=== PATIENT | male | born 2000 | race Caucasian/White ===

== ENCOUNTER 2022-11-08 16:31 | Emergency (ER) | payer BC ==
[2022-11-08 17:46] LABS: #Basophils 0.1 10x3/uL (0.0-0.2); #Eosinphils 0.2 10x3/uL (0.0-0.5); #Monocytes 0.6 10x3/uL (0.0-1.1); #Neutrophils 4.6 10x3/uL (1.5-8.4); %Eosinophils 1.8 % (0.0-6.0); %Lymphocytes 33.7 % (18.0-47.0); %Monocytes 7.4 % (0.0-10.0); %Neutrophils 55.5 % (40.0-75.0); Hemoglobin 15.1 g/dL (13.5-17.5); Mean Corpuscular HGB CONC 33.8 g/dL (32.0-36.0); Mean Corpuscular Hemoglobin 30.4 pg (27.0-33.0); Mean Corpuscular Volume 90.1 fl (81.2-95.1); Mean Platelet Volume 9.8 fl (7.4-10.4); Platelet Count 290 10x3/uL (150-450); RBC Distribution Width 12.5 % (11.5-14.5); Red Blood Cell (RBC) Count 4.96 10x6/uL (4.32-5.72); White Blood Cell (WBC) Count 8.2 10x3/uL (3.5-10.5)
[2022-11-08] MEDS ORDERED: cefTRIAXone (ROCEPHIN) 2 GM VIAL ONE (17:46)
[2022-11-08 18:06] LABS: ALT (SGPT) 48 U/L (8-55); AST (SGOT) 23 U/L (5-34); Albumin 4.5 g/dL (3.5-5.0); Alkaline Phosphatase 117 U/L (40-110); Anion Gap 15 mmol/L (10-20); BUN (Urea Nitrogen) 11 mg/dL (8.9-20.6); Bilirubin, Total 0.5 mg/dL (0.2-1.2); Calc. Creatinine Clearance 0 mL/min (70-130); Calcium 9.8 mg/dL (7.8-10.44); Carbon Dioxide 24 mmol/L (22-29); Chloride 106 mmol/L (98-107); Estimated GFR 91; Globulin 2.8 g/dL (2.4-3.5); Glucose 86 mg/dL (70-105); Protein, Total 7.3 g/dL (6.0-8.3); Sodium 140 mmol/L (136-145)
== END 2022-11-08 19:29 | disposition home or self-care (01) ==
LOC: CSHERS 16:31
DX: T81.49XA Infection following a procedure, other surgical site, initial encounter (principal); F17.210 Nicotine dependence, cigarettes, uncomplicated
CPT/HCPCS: 36415; 80053; 85025; 85652; 86140; 96365; J0696

== ENCOUNTER 2022-11-13 12:19 | Outpatient (CLI) | payer BC | END 2022-11-13 12:20 | disposition home or self-care (01) | LOC: CSHWCC 12:19 | PROVIDERS: ATTEND Nurse Practitioner Family | DX: T81.89XD Other complications of procedures, not elsewhere classified, subsequent encounter (principal); R60.0 Localized edema | CPT/HCPCS: 87070; 87077; 87186; 87205 ==

== ENCOUNTER 2022-11-22 10:15 | Outpatient (CLI) | payer BC | END 2022-11-22 10:16 | disposition home or self-care (01) | LOC: CSHWCC 10:15 | PROVIDERS: ATTEND Nurse Practitioner Family | DX: T81.89XD Other complications of procedures, not elsewhere classified, subsequent encounter (principal); R60.0 Localized edema ==